=== PATIENT | male | born 1945 | race African-American/Black ===

== ENCOUNTER 2024-12-23 13:10 | Emergency (ER) | payer OTHER, SELFPAY ==
[2024-12-23 13:48] VITALS: BP 119/70
--- NOTE | 2024-12-23 15:08 | ED.GENMED ---
History of Present Illness
<Helene Gutierrez DO, Resident - Last Filed: 12/23/24 16:27>
General
Chief Complaint: Musculo-Skeletal Complaint
Source: patient and family
Time Seen by Provider: 12/23/24 14:59
History of Present Illness
History of Present Illness:
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 Patient states that on Sunday he misstepped and reached for
a post that was loose, and proceeded to fall backward onto his backpack and right side. He has been experiencing rib and thoracic back pain since the fall. Patient is visiting from [place] this week. Patient has been monitoring his pain with
tylenol. Patient is most comfortable leaning on his left side or flat on his back with his knees pulled up.
Past History
<Helene Gutierrez DO, Resident - Last Filed: 12/23/24 16:27>
Past History
ED Past Medical History: HTN
Review of Systems
<Helene Gutierrez DO, Resident - Last Filed: 12/23/24 16:27>
Review of Systems
Constitutional: Reports no symptoms
EENT: Reports no symptoms
Respiratory: Reports no symptoms
Cardiac: Reports no symptoms
ABD/GI: Reports no symptoms
: Reports no symptoms
Musculoskeletal: Reports back pain
Neurological: Reports other (decreased peripheral vision since hemorrhagic stroke in August)
Psychiatric: Reports no symptoms
Phy Exam
<Helene Gutierrez DO, Resident - Last Filed: 12/23/24 16:27>
General Physical Exam
General Presentation: well appearing
General age: appears stated age
General Skin: warm and dry
General Mental: alert
Musculoskeletal Exam
Musculoskeletal Exam: back pain (right sided) and back tenderness (right sided)
Course
<Helene Gutierrez DO, Resident - Last Filed: 12/23/24 16:27>
Orders/Labs/Results
Orders:
Orders
12/23/24 13:51
CR Thoracic Spine 3 Views Urgent
Comment:
Reason For Exam: fall
Ribs, Right 3 View W/PA Chest [CR Ribs-right 3 Vw W/pa Chest*] Urgent
Comment:
Reason For Exam: fall
12/23/24 16:15
Incentive Spirometry [Rx Incentive Spirometry] [RESP] Urgent
Frequency: q1h while awake
Vital Signs
Initial and Last Documented VS:
Initial Vital Signs
Temp Pulse Resp BP Pulse Ox
98.7 F 86 17 119/70 99
12/23/24 13:48 12/23/24 13:48 12/23/24 13:48 12/23/24 13:48 12/23/24 13:48
Last Documented Vital Signs
Temp Pulse Resp BP Pulse Ox
98.7 F 86 17 119/70 99
12/23/24 13:48 12/23/24 13:48 12/23/24 13:48 12/23/24 13:48 12/23/24 15:09
<Eleno Porter MD - Last Filed: 12/23/24 17:08>
Orders/Labs/Results
Orders:
Orders
12/23/24 13:51
CR Thoracic Spine 3 Views Urgent
Comment:
Reason For Exam: fall
Ribs, Right 3 View W/PA Chest [CR Ribs-right 3 Vw W/pa Chest*] Urgent
Comment:
Reason For Exam: fall
12/23/24 16:15
Incentive Spirometry [Rx Incentive Spirometry] [RESP] Urgent
Frequency: q1h while awake
Vital Signs
Initial and Last Documented VS:
Initial Vital Signs
Temp Pulse Resp BP Pulse Ox
98.7 F 86 17 119/70 99
12/23/24 13:48 12/23/24 13:48 12/23/24 13:48 12/23/24 13:48 12/23/24 13:48
Last Documented Vital Signs
Temp Pulse Resp BP Pulse Ox
98.7 F 86 17 119/70 99
12/23/24 13:48 12/23/24 13:48 12/23/24 13:48 12/23/24 13:48 12/23/24 15:09
<Helene Gutierrez DO, Resident - Last Filed: 12/23/24 16:27>
MDM/Problems Addressed
Differential Diagnosis Includes:
rib contusion, mechanical fall, back pain
MDM/Problems Addressed:
After physical exam and talking with the patient, I do not believe that there is need for further imaging studies. X ray of chest, ribs and thoracic spine negative. Patient advised to continue Tylenol for pain management. We also discussed the use
of inspiratory spirometer to prevent atelectesis d/t shallow breathing with pain. Patient encouraged to follow up with PCP at home.
<Helene Gutierrez DO, Resident - Last Filed: 12/23/24 16:27>
*Pulse Oximetry
SaO2: 99
Oxygen Mode of Delivery: Room air
Patient hypoxic: no
*Critical Care Note
Total Time (30-74mins, 75-104mins- exclusive of procedures): Not Applicable
<Helene Gutierrez DO, Resident - Last Filed: 12/23/24 16:27>
Update Note
Update Note:
Chest and Rib X ray revealed no displaced right rib fracture. No pleural effusion or pneumothorax.
Thoracic spine xray revealed No evidence of acute compression fracture within the thoracic spine.
ED Attending Note
<Helene Gutierrez DO, Resident - Last Filed: 12/23/24 16:27>
-
Portions of this chart may have been created with voice recognition software.� Occasional wrong word or��sound alike� substitutions may have occurred due to the inherent limitations of voice recognition software.
<Eleno Porter MD - Last Filed: 12/23/24 17:08>
ED Attending Note
Patient seen and examined by attending physician: Yes
ED Attending Note:
Patient with recent hemorrhagic stroke, resulting in affecting peripheral vision, presents to ED [place]. Patient states that he tried to prevent a fall by reaching for a pole on the
side, but that pole was also loose and broken. Patient fell onto his back, while wearing his backpack. Since then, patient has had persistent right mid back pain. Denies any other injuries from the fall. Denies head injury. Denies neck pain.
Denies headache. Denies loss of sensation or weakness. Denies difficulty with ambulation. Denies nausea or vomiting. Denies chest pain. Denies shortness of breath. Patient does not take any blood thinning medication at this time. However,
secondary to hemorrhagic stroke, patient has had persistent peripheral vision loss as well as blurred vision. Patient is currently undergoing therapy at home in [place]. Patient is currently traveling, but is scheduled to return home tomorrow.
Physical Exam
General: mild painful distress, not acutely ill. afebrile
Head: nc/at. eomi
Neck: supple. no meningeal signs.
Heart: s1/s2 regular rate and rhythm
Lungs: no acute respiratory distress. clear bilaterally
Abdomen: normal bowel sounds. not tender.
Back: no midline tenderness. linear erythema with tenderness noted over right mid back, at level of rib#9-10, without obvious deformity/ecchymosis
Neuro: alert and oriented x 3. no focal neurological deficits
Skin: no rash
Psychiatric: well kept. interactive and cooperative
Extremities: no edema. no calf tenderness.
X-ray report reviewed and discussed with patient and spouse. History and exam consistent with likely rib contusion from the fall. Fortunately, patient remains afebrile, helically stable, and without acute respiratory distress. As patient reports
mild improvement in symptoms after use of Tylenol, patient will be advised to continue use of Tylenol along with ice/warm compress application, as well as PCP follow-up. Patient given copy of x-ray on a disk as well as incentive parameter prior to
discharge. Patient expressed understanding at time of discharge.
Discharge Plan
Departure
Patient Disposition: Home (Routine Discharge)
Date of Disposition: 12/23/24
Time of Disposition: 16:15
Patient with high blood pressure during this ER visit?: Yes
Discharge Problem:
Contusion of rib
Instructions: Contusion (DC), How to use an incentive spirometer
Referrals:
UNKNOWN - PT DOES,NOT KNOW [Family Provider]
Activity Restrictions/Additional Instructions:
As discussed, please continue to use provided incentive spirometer along with primary care physician follow-up as an outpatient.
Interventions
Interventions:
*Risk Screen - Suicide Last Done: 12/23/24 13:51
*General Assessment Last Done: 12/23/24 13:51
*Neglect/Abuse Screening Last Done: 12/23/24 13:51
*ED COVID-19 Vaccine History Last Done: 12/23/24 13:51
ED-Musculoskeletal Assessment Last Done: 12/23/24 16:05
Discharge Date and Time
Print Language: [email or web address]
== END 2024-12-23 18:11 | disposition home or self-care (01) ==
LOC: EMR 13:10
PROVIDERS: EMERGENCY PHYSICIAN Emergency Medicine
DX: S20.221A Contusion of right back wall of thorax, initial encounter (principal); R07.81 Pleurodynia; W19.XXXA Unspecified fall, initial encounter; I10 Essential (primary) hypertension; I69.398 Other sequelae of cerebral infarction
CPT/HCPCS: 99284; 71101; 72072